=== PATIENT | female | born 1955 | race African-American/Black ===

== ENCOUNTER 2019-12-14 13:49 | Emergency (ER) | payer BC ==
[~2019-12-14] VITALS: Ht 152.4 cm; Wt 71.3 kg
--- NOTE | 2019-12-14 14:29 | NUR ---
PATIENT BROUGHT BACK FORM TRIAGE WITH CHIEF COMPLAINT OF VB. DR MASSEY GYNO 2016-BLADDER PROLAPSE, PESSARY BELT PLACED. 2018 DEVELOPED SPOTTING 2018 DEVELOPED HEAVY BLEEDING FOR 4 DAYS. 2018 PESSARY BELT REMOVED 2018- HAD MAMOGRAM AND ULTRASOUND DONE, "SOME SORT OF THICKNESS FOUND"
--- NOTE | 2019-12-14 15:10 | NUR ---
ANABELLE THOMPSON AT BEDSIDE TO DISCUSS POC
[2019-12-14 15:26] VITALS: BP 159/78
--- NOTE | 2019-12-14 15:39 | NUR ---
DISCHARGE INSTRUCTIONS REVIEWED
== END 2019-12-14 15:54 | disposition home or self-care (01) ==
LOC: ED 14:21
DX: N95.0 Postmenopausal bleeding (principal); I10 Essential (primary) hypertension
CPT/HCPCS: 99281